=== PATIENT | male | born 1980 | race Caucasian/White ===

== ENCOUNTER 2020-01-23 08:29 | Emergency (ER) | payer OTHER ==
[~2020-01-23] VITALS: Ht 188 cm; Wt 145.2 kg
[~2020-01-23 08:29] MED LIST: CEPH500 PO; NAPR375 PO; OMEP20ER PO; OXYACE5T PO; SULTRIDS PO
[2020-01-23] MEDS ORDERED: LOSARTAN-HCTZ1 EAC5 PO (08:43)
[2020-01-23] MEDS ORDERED: AMOX-CLAV 875-1 EAC2 PO (08:44)
[2020-01-23 09:29] LABS: BASOPHILS ABSOLUTE AUTO 0.04 K/mm3 (0.00-0.23); BASOPHILS PERCENT AUTO 0 % (0-2); EOSINOPHILS ABSOLUTE AUTO 0.06 K/mm3 (0.00-0.68); EOSINOPHILS PERCENT AUTO 0 % (0-6); Hematocrit 41.7 % (37.0-53.0); Hemoglobin 14.3 g/dL (13.5-17.5); IMMATURE GRAN ABSOLUTE AUTO 0.05 K/mm3 (0.00-0.10); IMMATURE GRAN PERCENT AUTO 0 % (0-1); LYMPHOCYTES ABSOLUTE AUTO 1.86 K/mm3 (0.84-5.20); LYMPHOCYTES PERCENT AUTO 14 % (21-46); MONOCYTES ABSOLUTE AUTO 1.66 K/mm3 (0.16-1.47); MONOCYTES PERCENT AUTO 12 % (4-13); Mean Corpuscular HGB 30.4 pg (26.0-34.0); Mean Corpuscular HGB Conc 34.3 g/dL (31.5-36.5); Mean Corpuscular Volume 89 fL (80-100); Mean Platelet Volume 10.2 fL (9.1-12.4); NEUTROPHILS ABSOLUTE AUTO 10.04 K/mm3 (1.96-9.15); NEUTROPHILS PERCENT AUTO 73 % (41-73); Platelet Count 220 K/mm3 (150-400); RDW Coefficient Variation 13.1 % (11.7-14.2); RDW Standard Deviation 42.9 fL (35.1-46.3); White Blood Cell Count 13.71 K/mm3 (4.00-11.30)
[2020-01-23 09:48] LABS: Anion Gap 3 mmol/L (6-16); Blood Urea Nitrogen 15 mg/dL (8-24); Bun/Creatinine Ratio 18.7 (12.0-20.0); CO2, Blood 28 mmol/L (21-32); Calcium, Blood 9.2 mg/dL (8.5-10.1); Chloride, Blood 109 mmol/L (98-108); Glomerular Filtration Rate >60 (60-); Glucose, Blood 106 mg/dL (70-99); Potassium, Blood 3.5 mmol/L (3.5-5.5); Sodium, Blood 140 mmol/L (136-145)
[2020-01-23] MEDS ORDERED: Mobic15 MG PO (10:39)
[2020-01-23] MEDS ORDERED: Percocet 7.5-31 EACH PO (10:39)
== END 2020-01-23 11:11 | disposition home or self-care (01) ==
LOC: ER 08:29
PROVIDERS: Physician Assistant
DX: M25.562 Pain in left knee (principal); D72.829 Elevated white blood cell count, unspecified; F17.200 Nicotine dependence, unspecified, uncomplicated; Z87.81 Personal history of (healed) traumatic fracture; Z79.899 Other long term (current) drug therapy
CPT/HCPCS: 36415; 73562-LT; 80048; 85025; 96374; 96375; 99283-25; J1170; J1885; J2405

== ENCOUNTER 2020-01-24 16:30 | Inpatient (IN) | payer OTHER ==
[~2020-01-24] VITALS: Ht 188 cm; Wt 163.6 kg
[~2020-01-24 16:30] MED LIST changes: +AMOX-CLAV 875-1 EAC2 PO; +LOSARTAN-HCTZ1 EAC5 PO; +Mobic15 MG PO; +Percocet 7.5-31 EACH PO
[2020-01-24 16:59] LABS: BASOPHILS ABSOLUTE AUTO 0.04 K/mm3 (0.00-0.23); BASOPHILS PERCENT AUTO 0 % (0-2); EOSINOPHILS ABSOLUTE AUTO 0.17 K/mm3 (0.00-0.68); EOSINOPHILS PERCENT AUTO 1 % (0-6); Hemoglobin 13.7 g/dL (13.5-17.5); IMMATURE GRAN ABSOLUTE AUTO 0.06 K/mm3 (0.00-0.10); IMMATURE GRAN PERCENT AUTO 1 % (0-1); LYMPHOCYTES ABSOLUTE AUTO 1.45 K/mm3 (0.84-5.20); LYMPHOCYTES PERCENT AUTO 11 % (21-46); MONOCYTES ABSOLUTE AUTO 1.44 K/mm3 (0.16-1.47); MONOCYTES PERCENT AUTO 11 % (4-13); Mean Corpuscular HGB 30.1 pg (26.0-34.0); Mean Corpuscular HGB Conc 33.4 g/dL (31.5-36.5); Mean Corpuscular Volume 90 fL (80-100); Mean Platelet Volume 9.9 fL (9.1-12.4); NEUTROPHILS ABSOLUTE AUTO 10.16 K/mm3 (1.96-9.15); NEUTROPHILS PERCENT AUTO 76 % (41-73); Platelet Count 243 K/mm3 (150-400); RDW Coefficient Variation 13.2 % (11.7-14.2); RDW Standard Deviation 44.1 fL (35.1-46.3); Red Blood Cell Count 4.55 M/mm3 (4.30-5.90); White Blood Cell Count 13.32 K/mm3 (4.00-11.30)
[2020-01-24 17:21] LABS: Alanine Aminotransfer (ALT/SGP 23 U/L (12-78); Albumin, Blood 3.6 g/dL (3.4-5.0); Albumin/Globulin Ratio 0.9 (0.8-1.8); Alk Phos 54 U/L (50-136); Anion Gap 8 mmol/L (6-16); Aspartate Aminotrans (AST/SGOT 17 U/L (12-37); Bilirubin, Total 0.7 mg/dL (0.1-1.0); Blood Urea Nitrogen 15 mg/dL (8-24); CO2, Blood 28 mmol/L (21-32); Calcium, Blood 9.5 mg/dL (8.5-10.1); Chloride, Blood 107 mmol/L (98-108); Globulin, Blood 4.2 g/dL (2.2-4.0); Glomerular Filtration Rate >60 (60-); Glucose, Blood 120 mg/dL (70-99); Potassium, Blood 3.4 mmol/L (3.5-5.5); Sodium, Blood 143 mmol/L (136-145); Total Protein, Blood 7.8 g/dL (6.4-8.2)
[2020-01-24 19:17] LABS: BODY FLUID RBC 0.028 M/mm3 (0-0); RBC Count, Synovial Fluid 28000 /mm3 (0-0)
[2020-01-24 19:20] LABS: Protein, Body Fluid 4.5 g/dL
[2020-01-24 19:28] LABS: Glucose, Body Fluid <1 mg/dL
[2020-01-24 19:29] LABS: Lactate Dehydrogenase, Body Fl 2638 U/L
[2020-01-24 19:36] LABS: WBC Count, Synovial Fluid 89750 /mm3 (0-180)
[2020-01-24 19:38] LABS: Appearance, Synovial Fluid Turbid (Clear); Color, Synovial Fluid Pale Yellow (None-P Yel)
[2020-01-24 20:41] LABS: Lymphs, Synovial Fluid 10 % (0-15); Monocytes/Macrophages, Synovia 3 % (0-65); Neutrophils, Synovial Fluid 87 % (0-24)
[2020-01-24 20:51] LABS: Body Fluid Crystals NEG (NEGATIVE)
--- NOTE | 2020-01-25 07:40 | NUR ---
SUMMARY DR CORONADO HERE TO SEE PT PREOP. PLANSFOR OR THIS AFTERNOON.
--- NOTE | 2020-01-25 07:42 | NUR ---
DR GIBBONS IN TO SEE PT.
--- NOTE | 2020-01-25 13:22 | NUR ---
PT TO PRE OP AT 1230
[2020-01-25 19:29] LABS: Vancomycin, Trough 16.2 ug/mL (5.0-10.0)
--- NOTE | 2020-01-26 00:10 | NUR ---
PATIENT DOES NOT WANT TO GET OOB TONIGHT, SCD'S ARE ON, POLAR PACK TO LT KNEE WITH FRESH ICE. NO DRAINAGE THROUGH BANDAGING. PERIPHERAL PULSES 2+ BILATERAL PEDAL AND POST TIB. PATIENT IS USING CPAP WHILE SLEEPING. CALL LIGHT IN REACH. PAIN CONTROLLED WITH PO PAIN MEDICATION.
[2020-01-26 03:48] LABS: BASOPHILS ABSOLUTE AUTO 0.01 K/mm3 (0.00-0.23); BASOPHILS PERCENT AUTO 0 % (0-2); EOSINOPHILS PERCENT AUTO 0 % (0-6); Hematocrit 35.9 % (37.0-53.0); Hemoglobin 11.9 g/dL (13.5-17.5); IMMATURE GRAN ABSOLUTE AUTO 0.03 K/mm3 (0.00-0.10); IMMATURE GRAN PERCENT AUTO 0 % (0-1); LYMPHOCYTES ABSOLUTE AUTO 0.83 K/mm3 (0.84-5.20); LYMPHOCYTES PERCENT AUTO 8 % (21-46); MONOCYTES ABSOLUTE AUTO 0.64 K/mm3 (0.16-1.47); MONOCYTES PERCENT AUTO 6 % (4-13); Mean Corpuscular HGB 29.7 pg (26.0-34.0); Mean Corpuscular HGB Conc 33.1 g/dL (31.5-36.5); Mean Corpuscular Volume 90 fL (80-100); Mean Platelet Volume 10.1 fL (9.1-12.4); NEUTROPHILS ABSOLUTE AUTO 9.61 K/mm3 (1.96-9.15); NEUTROPHILS PERCENT AUTO 86 % (41-73); Platelet Count 242 K/mm3 (150-400); RDW Coefficient Variation 12.9 % (11.7-14.2); Red Blood Cell Count 4.01 M/mm3 (4.30-5.90); White Blood Cell Count 11.12 K/mm3 (4.00-11.30)
[2020-01-26 04:03] LABS: Magnesium, Blood 2.2 mg/dL (1.6-2.4)
[2020-01-26 04:04] LABS: Albumin, Blood 2.5 g/dL (3.4-5.0); Anion Gap 4 mmol/L (6-16); Blood Urea Nitrogen 20 mg/dL (8-24); Bun/Creatinine Ratio 24.2 (12.0-20.0); CO2, Blood 30 mmol/L (21-32); Calcium, Blood 8.6 mg/dL (8.5-10.1); Chloride, Blood 106 mmol/L (98-108); Creatinine, Blood 0.83 mg/dL (0.60-1.20); Glomerular Filtration Rate >60 (60-); Glucose, Blood 159 mg/dL (70-99); Phosphorus, Blood 3.8 mg/dL (2.5-4.9); Potassium, Blood 3.7 mmol/L (3.5-5.5); Sodium, Blood 140 mmol/L (136-145)
--- NOTE | 2020-01-26 04:09 | NUR ---
PATIENT HAS BEEN ABLE TO SLEEP FOR MOST OF THE MORNING HOURS, HEMOVAC DRAINED OF SANGUINOUS FLUID 45CC (8 HOURS). CPAP USED WHILE SLEEPING. NO ACUTE CHANGES THIS AM.
--- NOTE | 2020-01-26 09:39 | NUR ---
DR ROSAS HERE RECENTLY TO SEE PT, REMOVED DRAIN AND PLACED NEW DRESSING. REPORTED MAY CHANGE DRESSING IF NEEDED AND TO USE HYDROGEN PEROXIDE ON WOUND IF THE DRESSING DOES NEED TO BE CHANGED. REPORTS PT NEEDS PICC LINE TO BE ABLE TO GO HOME ON IV ABX. DR ROSAS REPORTS TALKING TO DR RAMIREZ ABOUT PT. DR TOURE HERE TO SEE PT WELL, DISCUSSED WITH DR TOURE THAT DR ROSAS REPORTED TALKING WITH DR RAMIREZ.
--- NOTE | 2020-01-26 15:19 | NUR ---
PT RECENTLY HAD PICC PLACED BY OTHER RN.
--- NOTE | 2020-01-26 16:03 | NUR ---
SHIFT SUMMARY PT EATING AND DRINKING, VOIDING, PASSING GAS. PT PAIN TOLERABLE ON PO PAIN MEDICATION. PT HAD PICC PLACED TODAY. PT WORKED WITH THERAPY TODAY. PAS AND POLAR PAC IN PLACE. DRESSING CONT TO BE WNL. PT USING CALL LIGHT APPR.
[2020-01-26 19:51] LABS: Vancomycin, Trough 17.6 ug/mL (5.0-10.0)
--- NOTE | 2020-01-27 05:02 | NUR ---
SHIFT SUMMARY PT A/O X4. TOLERATING DIET AND VOIDING. BRIGHT TO L KNEE CDI WITH POLAR PACK IN PLACE. PAIN MANAGED WITH PO PAIN MED AND TORADOL PER ORDERS. PT USES CPAP AT NIGHT, WHICH IS BASELINE FOR HIM. PT CURRENTLY RESTING QUIETLY. VSS. CALL LIGHT IN REACH.
--- NOTE | 2020-01-27 08:45 | NUR ---
DR ROSAS HERE AND CHANGED DRESSING.
--- NOTE | 2020-01-27 09:45 | NUR ---
PT NOTED TO HAVE ABX CHANGES. DISCUSSED WITH PHARMACY. ROCEPHIN STOPPED. PHARMACY REPORTS WILL SEND OTHER ABX TO GIVE.
--- NOTE | 2020-01-27 12:38 | NUR ---
DR ROPER HERE TO SEE PT.
--- NOTE | 2020-01-27 15:30 | NUR ---
SHIFT SUMMARY PT EATING AND DRINKING, VOIDING, RECENT BM. PT BEEN ASSISTED WITH ADL'S PRN. PT FAMILY IN ROOM AT THIS TIME. PT BEEN SEEN BY FRANK FIELD TODAY AND HAD DRESSING CHANGED TODAY BY DR ROSAS. PT USING [employer] APPR.
--- NOTE | 2020-01-28 05:18 | NUR ---
SHIFT SUMMARY PT A/O X4. TOLERATING PO INTAKE AND VOIDING USING URINAL. PAIN MANAGED WITH PO PAIN MED AND TORADOL PER ORDERS. POLAR PACK IN PLACE TO L KNEE. BRIGHT WRAP CDI. VSS OVERNIGHT. PT USING CPAP WHILE ASLEEP. NO NEW CHANGES OVERNIGHT. CALL LIGHT IN REACH.
[2020-01-28] MEDS ORDERED: ASPI325EC PO (17:14)
[2020-01-28] MEDS ORDERED: DOCU100 PO (17:17)
[2020-01-28] MEDS ORDERED: HYDR1TAB94 PO (17:17)
[2020-01-28] MEDS ORDERED: CEFTRIAXONE2 G1 IV (17:17)
[2020-01-28] MEDS ORDERED: SENN187 PO (17:18)
[2020-01-28] MEDS ORDERED: Milk Of Ma400 MG/5 M PO (17:18)
[2020-01-28] MEDS ORDERED: LACTOBACILLUS1 EAC4 PO (17:19)
--- NOTE | 2020-01-28 18:22 | NUR ---
DISCHARGE: DRESSING CHANGED TODAY, CLEANSED WITH HYDROGEN PEROXIDE, ABD PLACED AND WRAPPED WITH BRIGHT. DISCHARGE PACKET PRINTED AND PT EDUCATED. GIVEN SCRIPT AND AQUACEL DRESSINGS FOR HOME. PLAN IS FOR PT TO COME TO [facility] FOR IV INFUSIONS DAILY. PICC LINE LEFT IN PLACE AT [place]. PT LEFT UNIT VIA WHEELCHAIR WITH MADIHA ACOSTA.
== END 2020-01-28 17:41 | disposition home or self-care (01) | DRG 854 ==
LOC: ER 16:30 → SURS 22:45
PROVIDERS: Emergency Medicine; Orthopaedic Surgery; Physician Assistant; ADMIT Hospitalist
PROC: 0S9D3ZZ Drainage of Left Knee Joint, Percutaneous Approach (ICD-10-PCS; principal; 2020-01-24)
PROC: 0SBD4ZZ Excision of Left Knee Joint, Percutaneous Endoscopic Approach (ICD-10-PCS; 2020-01-24)
PROC: 02HV33Z Insertion of Infusion Device into Superior Vena Cava, Percutaneous Approach (ICD-10-PCS; 2020-01-24)
DX: A41.01 Sepsis due to Methicillin susceptible Staphylococcus aureus (principal); M00.9 Pyogenic arthritis, unspecified; Z68.42 Body mass index [BMI] 45.0-49.9, adult; K21.9 Gastro-esophageal reflux disease without esophagitis; M17.12 Unilateral primary osteoarthritis, left knee; M19.072 Primary osteoarthritis, left ankle and foot; Z87.891 Personal history of nicotine dependence; I10 Essential (primary) hypertension; E87.6 Hypokalemia; E66.9 Obesity, unspecified; T50.2X5A Adverse effect of carbonic-anhydrase inhibitors, benzothiadiazides and other diuretics, initial encounter; Y92.9 Unspecified place or not applicable
CPT/HCPCS: 20610; 36415; 80048; 80053; 80069; 80202; 82945; 83605; 83615; 83735; 84157; 85025; 85651; 86140; 87040; 87070; 87075; 87077; 87147; 87186; 87205; 89051; 89060; 93005; 93010; 94660; 94762; 96365-59; 96375-59; 97110; 97162; 99284-25; A9270; A9270-GY; C1751; J0696; J1100; J1170; J1650; J1885; J2250; J2405; J2700; J2704; J3010; J3370; J7040; J7050; J7120; U0003

== ENCOUNTER 2020-01-29 00:45 | Day surgery (SDC) | payer OTHER ==
[~2020-01-29 00:45] MED LIST changes: +ASPI325EC PO; +CEFTRIAXONE2 G1 IV; +DOCU100 PO; +HYDR1TAB94 PO; +LACTOBACILLUS1 EAC4 PO; +Milk Of Ma400 MG/5 M PO; +SENN187 PO
--- NOTE | 2020-01-29 12:05 | NUR ---
PT CAME TO APPT WITH PICC DRESSING OFF. PT VERY SWEATY. CHANGED DRESSING. PICC LINE RENESS AT INSERTION SITE AND AROUND OLD DRESSING FROM PT PULLING ON IT WHILE ASLEEP. DRESSING CHANGED, AND ARM WRAPPED WITH COBAN AND BRIGHT WRAP FOR PREVENTION OF DRESSING BEING REMOVED.
== END 2020-01-29 11:35 | disposition home or self-care (01) ==
LOC: ATC 00:45
DX: M00.9 Pyogenic arthritis, unspecified (principal); I10 Essential (primary) hypertension; K21.9 Gastro-esophageal reflux disease without esophagitis; E87.6 Hypokalemia; E66.9 Obesity, unspecified; Z87.891 Personal history of nicotine dependence; Z20.828 Contact with and (suspected) exposure to other viral communicable diseases; Z79.899 Other long term (current) drug therapy
CPT/HCPCS: 96365; J0696

== ENCOUNTER 2020-01-30 10:31 | Day surgery (SDC) | payer OTHER ==
[2020-01-31] MEDS ORDERED: ASPI325EC PO (15:42)
[2020-01-31] MEDS ORDERED: NAPROXEN500 MG PO (15:42)
[2020-01-31] MEDS ORDERED: Adipex-P37.5 M1 (15:42)
[2020-01-31] MEDS ORDERED: OMEP20ER PO (15:43)
== END 2020-01-30 11:26 | disposition home or self-care (01) ==
LOC: ATC 10:31
DX: M00.9 Pyogenic arthritis, unspecified (principal); B95.61 Methicillin susceptible Staphylococcus aureus infection as the cause of diseases classified elsewhere; I10 Essential (primary) hypertension; K21.9 Gastro-esophageal reflux disease without esophagitis; E87.6 Hypokalemia; E66.9 Obesity, unspecified; Z87.891 Personal history of nicotine dependence; Z20.828 Contact with and (suspected) exposure to other viral communicable diseases; Z79.899 Other long term (current) drug therapy
CPT/HCPCS: 96365; J0696

== ENCOUNTER 2020-01-31 00:13 | Day surgery (SDC) | payer OTHER ==
[2020-01-31] MEDS ORDERED: Adipex-P37.5 M1 (15:42)
[2020-01-31] MEDS ORDERED: ASPI325EC PO (15:42)
[2020-01-31] MEDS ORDERED: NAPROXEN500 MG PO (15:42)
[2020-01-31] MEDS ORDERED: OMEP20ER PO (15:43)
[2020-02-01] MEDS ORDERED: ACET325 PO (14:58)
[2020-02-01] MEDS ORDERED: VISBIOME PO (15:00)
[2020-02-01] MEDS ORDERED: HYDMOR2 PO (15:02)
[2020-02-01] MEDS ORDERED: CEFTRIAXON1 GM/50 M1 IV (15:04)
== END 2020-01-31 22:55 | disposition home or self-care (01) ==
LOC: ATC 00:13
DX: M00.9 Pyogenic arthritis, unspecified (principal); I10 Essential (primary) hypertension; K21.9 Gastro-esophageal reflux disease without esophagitis; Z88.0 Allergy status to penicillin; Z91.018 Allergy to other foods; Z20.828 Contact with and (suspected) exposure to other viral communicable diseases; E87.6 Hypokalemia; E66.9 Obesity, unspecified; Z87.891 Personal history of nicotine dependence; Z79.899 Other long term (current) drug therapy
CPT/HCPCS: J0696

== ENCOUNTER 2020-01-31 08:54 | Observation (INO) | payer OTHER ==
[~2020-01-31] VITALS: Ht 188 cm; Wt 165.6 kg
[2020-01-31 10:06] LABS: BASOPHILS ABSOLUTE AUTO 0.04 K/mm3 (0.00-0.23); BASOPHILS PERCENT AUTO 0 % (0-2); EOSINOPHILS ABSOLUTE AUTO 0.13 K/mm3 (0.00-0.68); EOSINOPHILS PERCENT AUTO 1 % (0-6); Hematocrit 39.8 % (37.0-53.0); Hemoglobin 13.3 g/dL (13.5-17.5); IMMATURE GRAN ABSOLUTE AUTO 0.09 K/mm3 (0.00-0.10); IMMATURE GRAN PERCENT AUTO 1 % (0-1); LYMPHOCYTES ABSOLUTE AUTO 1.56 K/mm3 (0.84-5.20); LYMPHOCYTES PERCENT AUTO 15 % (21-46); MONOCYTES ABSOLUTE AUTO 1.06 K/mm3 (0.16-1.47); MONOCYTES PERCENT AUTO 10 % (4-13); Mean Corpuscular HGB 29.8 pg (26.0-34.0); Mean Corpuscular HGB Conc 33.4 g/dL (31.5-36.5); Mean Corpuscular Volume 89 fL (80-100); Mean Platelet Volume 9.6 fL (9.1-12.4); NEUTROPHILS ABSOLUTE AUTO 7.84 K/mm3 (1.96-9.15); NEUTROPHILS PERCENT AUTO 73 % (41-73); Platelet Count 380 K/mm3 (150-400); RDW Coefficient Variation 12.6 % (11.7-14.2); RDW Standard Deviation 41.3 fL (35.1-46.3); Red Blood Cell Count 4.46 M/mm3 (4.30-5.90); White Blood Cell Count 10.72 K/mm3 (4.00-11.30)
[2020-01-31 10:24] LABS: Alanine Aminotransfer (ALT/SGP 72 U/L (12-78); Albumin/Globulin Ratio 0.6 (0.8-1.8); Alk Phos 77 U/L (50-136); Anion Gap 6 mmol/L (6-16); Aspartate Aminotrans (AST/SGOT 38 U/L (12-37); Bilirubin, Total 0.3 mg/dL (0.1-1.0); Blood Urea Nitrogen 16 mg/dL (8-24); Bun/Creatinine Ratio 19.4 (12.0-20.0); CO2, Blood 29 mmol/L (21-32); Calcium, Blood 9.7 mg/dL (8.5-10.1); Chloride, Blood 103 mmol/L (98-108); Creatinine, Blood 0.82 mg/dL (0.60-1.20); Globulin, Blood 4.7 g/dL (2.2-4.0); Glomerular Filtration Rate >60 (60-); Glucose, Blood 120 mg/dL (70-99); Potassium, Blood 4.2 mmol/L (3.5-5.5); Sodium, Blood 138 mmol/L (136-145); Total Protein, Blood 7.7 g/dL (6.4-8.2)
[2020-01-31] MEDS ORDERED: Adipex-P37.5 M1 (15:42)
[2020-01-31] MEDS ORDERED: ASPI325EC PO (15:42)
[2020-01-31] MEDS ORDERED: NAPROXEN500 MG PO (15:42)
[2020-01-31] MEDS ORDERED: OMEP20ER PO (15:43)
[2020-01-31 16:43] LABS: BODY FLUID RBC 0.135 M/mm3 (0-0); RBC Count, Synovial Fluid 135000 /mm3 (0-0); WBC Count, Synovial Fluid 293 /mm3 (0-180)
--- NOTE | 2020-01-31 17:01 | NUR ---
PT ARRIVED TO UNIT FROM ER AT APROX 1600. PT SBA TX USING CRUTCHES. L KNEE SWOLLEN, PAINFUL WITH PALPATION. INCISION C/D/I-NO DRAINAGE PRESENT, OPEN TO AIR. PT RATES PAIN 07/26. DR FORREST CONSULTED BY ER. PT NPO AT THIS TIME.
[2020-01-31 18:21] LABS: Eos, Synovial Fluid 3 % (0-2); Lymphs, Synovial Fluid 37 % (0-15); Monocytes/Macrophages, Synovia 21 % (0-65); Neutrophils, Synovial Fluid 39 % (0-24)
[2020-01-31 18:24] LABS: Appearance, Synovial Fluid Bloody (Clear); Color, Synovial Fluid Red (None-P Yel)
--- NOTE | 2020-02-01 04:28 | NUR ---
SHIFT SUMMARY PT RESTING WELL THIS AM. AAOX4. NPO. LEFT KNEE WITH INCISION [employer]NALYZ[employer]ES, NO DRAINAGE. SWELLING + INCREASED WARMTH AROUND INCSIONS NOTED TO LEFT KNEE. PAIN DECREASED WITH 1MG IV DILAUDID Q2-3H. NO NAUSEA/EMESIS. IVF + ABX PER ORDERS. NO ACUTE CHANGES OVER NIGHT. PT CURRENTLY RESTING WITH CALL LIGHT IN REACH.
[2020-02-01 05:36] LABS: BASOPHILS ABSOLUTE AUTO 0.07 K/mm3 (0.00-0.23); BASOPHILS PERCENT AUTO 1 % (0-2); EOSINOPHILS ABSOLUTE AUTO 0.27 K/mm3 (0.00-0.68); EOSINOPHILS PERCENT AUTO 3 % (0-6); Hemoglobin 12.4 g/dL (13.5-17.5); IMMATURE GRAN PERCENT AUTO 1 % (0-1); LYMPHOCYTES ABSOLUTE AUTO 2.87 K/mm3 (0.84-5.20); LYMPHOCYTES PERCENT AUTO 31 % (21-46); MONOCYTES ABSOLUTE AUTO 1.22 K/mm3 (0.16-1.47); MONOCYTES PERCENT AUTO 13 % (4-13); Mean Corpuscular HGB 29.5 pg (26.0-34.0); Mean Corpuscular HGB Conc 32.6 g/dL (31.5-36.5); Mean Corpuscular Volume 91 fL (80-100); Mean Platelet Volume 9.7 fL (9.1-12.4); NEUTROPHILS ABSOLUTE AUTO 4.74 K/mm3 (1.96-9.15); NEUTROPHILS PERCENT AUTO 51 % (41-73); Platelet Count 379 K/mm3 (150-400); RDW Coefficient Variation 12.7 % (11.7-14.2); RDW Standard Deviation 42.1 fL (35.1-46.3); White Blood Cell Count 9.27 K/mm3 (4.00-11.30)
[2020-02-01 05:54] LABS: Anion Gap 5 mmol/L (6-16); Blood Urea Nitrogen 18 mg/dL (8-24); Bun/Creatinine Ratio 19.5 (12.0-20.0); CO2, Blood 30 mmol/L (21-32); Calcium, Blood 9.1 mg/dL (8.5-10.1); Chloride, Blood 103 mmol/L (98-108); Creatinine, Blood 0.92 mg/dL (0.60-1.20); Glomerular Filtration Rate >60 (60-); Glucose, Blood 103 mg/dL (70-99); Potassium, Blood 4.2 mmol/L (3.5-5.5); Sodium, Blood 138 mmol/L (136-145)
--- NOTE | 2020-02-01 13:10 | NUR ---
dr kent by to see pt ok to eat no surg stated pain must be controlled to go home talked with dr birch about switching to po dilaudid if pain is collin poss discharge
[2020-02-01] MEDS ORDERED: ACET325 PO (14:58)
[2020-02-01] MEDS ORDERED: VISBIOME PO (15:00)
[2020-02-01] MEDS ORDERED: HYDMOR2 PO (15:02)
[2020-02-01] MEDS ORDERED: CEFTRIAXON1 GM/50 M1 IV (15:04)
--- NOTE | 2020-02-01 15:30 | NUR ---
DISCHARGE INSTRUCTIONS REVIEWED WITH PT VERBALIZED RX GIVEN ADDITIONAL TUBING ADDED TO PICC LINE WITH FLUSH SO PT CAN ADMINISTER HIS IV ROCEPHIN
--- NOTE | 2020-02-01 16:04 | NUR ---
WC ESCORT TO CAR NO ACUTE CHANGES
== END 2020-02-01 16:05 | disposition home or self-care (01) ==
LOC: ER 08:54 → SURS 08:55 → ER 08:56 → SURS 08:56
PROVIDERS: Emergency Medicine; ADMIT Internal Medicine
DX: M00.062 Staphylococcal arthritis, left knee (principal); B95.61 Methicillin susceptible Staphylococcus aureus infection as the cause of diseases classified elsewhere; I10 Essential (primary) hypertension; K21.9 Gastro-esophageal reflux disease without esophagitis; E66.01 Morbid (severe) obesity due to excess calories; Z79.82 Long term (current) use of aspirin; Z79.899 Other long term (current) drug therapy; Z87.891 Personal history of nicotine dependence; Z68.42 Body mass index [BMI] 45.0-49.9, adult
CPT/HCPCS: 20610; 20611; 80048; 80053; 85025; 85651; 86140; 87070; 87205; 89051; 93971; 94660; 94762; 96365-59; 96367-59; 96375-59; 96376-59; 97110; 97161; 99284-25; G0378; J0690; J0696; J1170; J1650; J1885; J2405; J7030

== ENCOUNTER 2020-02-01 21:43 | Observation (INO) | payer OTHER ==
[~2020-02-01] VITALS: Ht 188 cm; Wt 163.3 kg
[~2020-02-01 21:43] MED LIST changes: +ACET325 PO; +Adipex-P37.5 M1; +CEFTRIAXON1 GM/50 M1 IV; +HYDMOR2 PO; +NAPROXEN500 MG PO; +VISBIOME PO
[2020-02-01 23:10] LABS: BASOPHILS ABSOLUTE AUTO 0.06 K/mm3 (0.00-0.23); BASOPHILS PERCENT AUTO 1 % (0-2); EOSINOPHILS ABSOLUTE AUTO 0.18 K/mm3 (0.00-0.68); EOSINOPHILS PERCENT AUTO 2 % (0-6); Hematocrit 39.5 % (37.0-53.0); IMMATURE GRAN ABSOLUTE AUTO 0.09 K/mm3 (0.00-0.10); IMMATURE GRAN PERCENT AUTO 1 % (0-1); LYMPHOCYTES ABSOLUTE AUTO 2.17 K/mm3 (0.84-5.20); LYMPHOCYTES PERCENT AUTO 18 % (21-46); MONOCYTES ABSOLUTE AUTO 0.97 K/mm3 (0.16-1.47); MONOCYTES PERCENT AUTO 8 % (4-13); Mean Corpuscular HGB 29.2 pg (26.0-34.0); Mean Corpuscular HGB Conc 32.9 g/dL (31.5-36.5); Mean Corpuscular Volume 89 fL (80-100); Mean Platelet Volume 9.7 fL (9.1-12.4); NEUTROPHILS PERCENT AUTO 71 % (41-73); Platelet Count 416 K/mm3 (150-400); RDW Coefficient Variation 12.3 % (11.7-14.2); RDW Standard Deviation 40.5 fL (35.1-46.3); Red Blood Cell Count 4.45 M/mm3 (4.30-5.90); White Blood Cell Count 11.97 K/mm3 (4.00-11.30)
[2020-02-01 23:24] LABS: Anion Gap 7 mmol/L (6-16); Blood Urea Nitrogen 20 mg/dL (8-24); Bun/Creatinine Ratio 20.9 (12.0-20.0); CO2, Blood 29 mmol/L (21-32); Calcium, Blood 9.3 mg/dL (8.5-10.1); Chloride, Blood 104 mmol/L (98-108); Creatinine, Blood 0.96 mg/dL (0.60-1.20); Glomerular Filtration Rate >60 (60-); Glucose, Blood 141 mg/dL (70-99); Potassium, Blood 4.2 mmol/L (3.5-5.5); Sodium, Blood 140 mmol/L (136-145)
--- NOTE | 2020-02-02 04:17 | NUR ---
SHIFT SUMMARY: L KNEE ABCESS PATIENT CAME TO THE FLOOR AROUND 0244 THIS MORNING. HE CAME AN ER TRANSFER. HE IS ALERT AND ORIENTED X4. VITALS ARE WNL AND IS NOT ON OXYGEN. HIS LEFT KNEE IS RED/WARM/SWOLLEN. PAIN HAS BEEN MANAGE BY 1MG DILAUDID. HE IS CURRENTLY LAYING IN BED WITH HIS CPAP MACHINE TRYING TO SLEEP. CALL LIGHT IS WITHIN REACH. PLAN IS TO CONSULT WITH DR. FORREST IN THE MORNING.
[2020-02-02 06:01] LABS: BASOPHILS ABSOLUTE AUTO 0.06 K/mm3 (0.00-0.23); BASOPHILS PERCENT AUTO 1 % (0-2); EOSINOPHILS PERCENT AUTO 2 % (0-6); Hematocrit 36.6 % (37.0-53.0); Hemoglobin 12.2 g/dL (13.5-17.5); IMMATURE GRAN PERCENT AUTO 1 % (0-1); LYMPHOCYTES ABSOLUTE AUTO 2.41 K/mm3 (0.84-5.20); LYMPHOCYTES PERCENT AUTO 26 % (21-46); MONOCYTES ABSOLUTE AUTO 1.21 K/mm3 (0.16-1.47); MONOCYTES PERCENT AUTO 13 % (4-13); Mean Corpuscular HGB 29.6 pg (26.0-34.0); Mean Corpuscular HGB Conc 33.3 g/dL (31.5-36.5); Mean Corpuscular Volume 89 fL (80-100); Mean Platelet Volume 9.4 fL (9.1-12.4); NEUTROPHILS ABSOLUTE AUTO 5.28 K/mm3 (1.96-9.15); NEUTROPHILS PERCENT AUTO 57 % (41-73); Platelet Count 382 K/mm3 (150-400); RDW Coefficient Variation 12.5 % (11.7-14.2); Red Blood Cell Count 4.12 M/mm3 (4.30-5.90); White Blood Cell Count 9.26 K/mm3 (4.00-11.30)
[2020-02-02 06:16] LABS: Anion Gap 6 mmol/L (6-16); Blood Urea Nitrogen 18 mg/dL (8-24); Bun/Creatinine Ratio 21.1 (12.0-20.0); CO2, Blood 29 mmol/L (21-32); Calcium, Blood 9.2 mg/dL (8.5-10.1); Chloride, Blood 104 mmol/L (98-108); Creatinine, Blood 0.85 mg/dL (0.60-1.20); Glomerular Filtration Rate >60 (60-); Glucose, Blood 105 mg/dL (70-99); Potassium, Blood 3.9 mmol/L (3.5-5.5); Sodium, Blood 139 mmol/L (136-145)
--- NOTE | 2020-02-02 10:30 | NUR ---
DR VALENZUELA IN TO SEE PT.
== END 2020-02-02 11:35 | disposition left against medical advice (07) ==
LOC: ER 21:43 → SURS 21:44
PROVIDERS: Physician Assistant; ADMIT Family Medicine
DX: M00.062 Staphylococcal arthritis, left knee (principal); B95.62 Methicillin resistant Staphylococcus aureus infection as the cause of diseases classified elsewhere; K21.9 Gastro-esophageal reflux disease without esophagitis; I10 Essential (primary) hypertension; D64.89 Other specified anemias; E66.01 Morbid (severe) obesity due to excess calories; Z68.42 Body mass index [BMI] 45.0-49.9, adult; Z79.82 Long term (current) use of aspirin; Z79.2 Long term (current) use of antibiotics; Z79.02 Long term (current) use of antithrombotics/antiplatelets; Z79.899 Other long term (current) drug therapy; Z87.891 Personal history of nicotine dependence; Z96.662 Presence of left artificial ankle joint; Z96.652 Presence of left artificial knee joint; Z87.81 Personal history of (healed) traumatic fracture; Z53.29 Procedure and treatment not carried out because of patient's decision for other reasons; Z23 Encounter for immunization
CPT/HCPCS: 73701; 80048; 85025; 85651; 86141; 94660; 96374; 96376; 99284-25; J0696; J1170; J7050; Q9967

== ENCOUNTER 2020-02-11 00:07 | Day surgery (SDC) | payer OTHER | END 2020-02-11 09:35 | disposition home or self-care (01) | LOC: ATC 00:07 | DX: Z48.01 Encounter for change or removal of surgical wound dressing (principal); M00.062 Staphylococcal arthritis, left knee; B95.61 Methicillin susceptible Staphylococcus aureus infection as the cause of diseases classified elsewhere; I10 Essential (primary) hypertension; K21.9 Gastro-esophageal reflux disease without esophagitis; E66.9 Obesity, unspecified; Z68.42 Body mass index [BMI] 45.0-49.9, adult; Z87.891 Personal history of nicotine dependence; Z79.2 Long term (current) use of antibiotics; Z79.899 Other long term (current) drug therapy | CPT/HCPCS: 99211 ==

== ENCOUNTER 2020-02-25 08:19 | Day surgery (SDC) | payer OTHER ==
[2020-02-25 10:04] LABS: BASOPHILS ABSOLUTE AUTO 0.05 K/mm3 (0.00-0.23); BASOPHILS PERCENT AUTO 1 % (0-2); EOSINOPHILS PERCENT AUTO 6 % (0-6); Hematocrit 37.3 % (37.0-53.0); Hemoglobin 12.2 g/dL (13.5-17.5); IMMATURE GRAN ABSOLUTE AUTO 0.03 K/mm3 (0.00-0.10); IMMATURE GRAN PERCENT AUTO 0 % (0-1); LYMPHOCYTES ABSOLUTE AUTO 2.08 K/mm3 (0.84-5.20); LYMPHOCYTES PERCENT AUTO 30 % (21-46); MONOCYTES PERCENT AUTO 9 % (4-13); Mean Corpuscular HGB 29.3 pg (26.0-34.0); Mean Corpuscular HGB Conc 32.7 g/dL (31.5-36.5); Mean Corpuscular Volume 89 fL (80-100); Mean Platelet Volume 9.8 fL (9.1-12.4); NEUTROPHILS ABSOLUTE AUTO 3.83 K/mm3 (1.96-9.15); NEUTROPHILS PERCENT AUTO 55 % (41-73); Platelet Count 248 K/mm3 (150-400); Red Blood Cell Count 4.17 M/mm3 (4.30-5.90); White Blood Cell Count 6.99 K/mm3 (4.00-11.30)
[2020-02-25 10:23] LABS: Alanine Aminotransfer (ALT/SGP 37 U/L (12-78); Albumin, Blood 3.3 g/dL (3.4-5.0); Albumin/Globulin Ratio 0.9 (0.8-1.8); Alk Phos 74 U/L (50-136); Anion Gap 6 mmol/L (6-16); Aspartate Aminotrans (AST/SGOT 23 U/L (12-37); Bilirubin, Total 0.2 mg/dL (0.1-1.0); Blood Urea Nitrogen 15 mg/dL (8-24); Bun/Creatinine Ratio 18.4 (12.0-20.0); CO2, Blood 29 mmol/L (21-32); Calcium, Blood 8.9 mg/dL (8.5-10.1); Chloride, Blood 110 mmol/L (98-108); Creatinine, Blood 0.82 mg/dL (0.60-1.20); Globulin, Blood 3.7 g/dL (2.2-4.0); Glomerular Filtration Rate >60 (60-); Glucose, Blood 97 mg/dL (70-99); Potassium, Blood 3.7 mmol/L (3.5-5.5); Sodium, Blood 145 mmol/L (136-145)
== END 2020-02-25 09:25 | disposition home or self-care (01) ==
LOC: ATC 08:19
PROVIDERS: Internal Medicine
DX: M00.9 Pyogenic arthritis, unspecified (principal); A49.01 Methicillin susceptible Staphylococcus aureus infection, unspecified site; I10 Essential (primary) hypertension; K21.9 Gastro-esophageal reflux disease without esophagitis; Z79.899 Other long term (current) drug therapy; E87.6 Hypokalemia; Z87.891 Personal history of nicotine dependence; E66.9 Obesity, unspecified; Z20.828 Contact with and (suspected) exposure to other viral communicable diseases
CPT/HCPCS: 36592; 80053; 85025

== ENCOUNTER 2020-03-05 00:52 | Day surgery (SDC) | payer OTHER ==
[2020-03-05 09:12] LABS: BASOPHILS ABSOLUTE AUTO 0.05 K/mm3 (0.00-0.23); BASOPHILS PERCENT AUTO 1 % (0-2); EOSINOPHILS ABSOLUTE AUTO 0.29 K/mm3 (0.00-0.68); EOSINOPHILS PERCENT AUTO 5 % (0-6); Hematocrit 39.1 % (37.0-53.0); Hemoglobin 12.7 g/dL (13.5-17.5); IMMATURE GRAN ABSOLUTE AUTO 0.02 K/mm3 (0.00-0.10); IMMATURE GRAN PERCENT AUTO 0 % (0-1); LYMPHOCYTES ABSOLUTE AUTO 2.03 K/mm3 (0.84-5.20); LYMPHOCYTES PERCENT AUTO 36 % (21-46); MONOCYTES ABSOLUTE AUTO 0.48 K/mm3 (0.16-1.47); MONOCYTES PERCENT AUTO 9 % (4-13); Mean Corpuscular HGB 28.8 pg (26.0-34.0); Mean Corpuscular HGB Conc 32.5 g/dL (31.5-36.5); Mean Corpuscular Volume 89 fL (80-100); Mean Platelet Volume 9.6 fL (9.1-12.4); NEUTROPHILS ABSOLUTE AUTO 2.71 K/mm3 (1.96-9.15); NEUTROPHILS PERCENT AUTO 49 % (41-73); Platelet Count 237 K/mm3 (150-400); RDW Coefficient Variation 13.5 % (11.7-14.2); Red Blood Cell Count 4.41 M/mm3 (4.30-5.90); White Blood Cell Count 5.58 K/mm3 (4.00-11.30)
[2020-03-05 09:43] LABS: C-REACTIVE PROTEIN, EXT RANGE 0.539 mg/dL (0.000-0.300)
[2020-03-05 09:45] LABS: Alanine Aminotransfer (ALT/SGP 32 U/L (12-78); Albumin, Blood 3.7 g/dL (3.4-5.0); Albumin/Globulin Ratio 1.1 (0.8-1.8); Alk Phos 69 U/L (50-136); Anion Gap 8 mmol/L (6-16); Aspartate Aminotrans (AST/SGOT 21 U/L (12-37); Bilirubin, Total 0.4 mg/dL (0.1-1.0); Blood Urea Nitrogen 13 mg/dL (8-24); Bun/Creatinine Ratio 15.2 (12.0-20.0); CO2, Blood 28 mmol/L (21-32); Calcium, Blood 9.2 mg/dL (8.5-10.1); Chloride, Blood 109 mmol/L (98-108); Creatinine, Blood 0.85 mg/dL (0.60-1.20); Globulin, Blood 3.3 g/dL (2.2-4.0); Glomerular Filtration Rate >60 (60-); Glucose, Blood 103 mg/dL (70-99); Sodium, Blood 145 mmol/L (136-145)
== END 2020-03-05 08:25 | disposition home or self-care (01) ==
LOC: ATC 00:52
PROVIDERS: Internal Medicine Infectious Disease
DX: M00.062 Staphylococcal arthritis, left knee (principal); B95.61 Methicillin susceptible Staphylococcus aureus infection as the cause of diseases classified elsewhere; I10 Essential (primary) hypertension; K21.9 Gastro-esophageal reflux disease without esophagitis; E66.9 Obesity, unspecified; Z87.891 Personal history of nicotine dependence; Z79.2 Long term (current) use of antibiotics; Z79.1 Long term (current) use of non-steroidal anti-inflammatories (NSAID); Z79.82 Long term (current) use of aspirin; Z79.899 Other long term (current) drug therapy
CPT/HCPCS: 36592; 80053; 85025; 85651; 86140